=== PATIENT | female | born 1940 | race Caucasian/White ===

== ENCOUNTER 2017-11-21 22:02 | Emergency (ER) | payer OTHER, MEDICARE, BC ==
[~2017-11-21] VITALS: Ht 165.1 cm; Wt 65.8 kg
[~2017-11-21 22:02] MED LIST: ATEN25 PO; ATOR10 PO; Aspir-Low81 MG PO; CALTRATE 600 +1 EACH PO; CHOL10002 PO; Cytomel5 MCG PO; LEVSOD100 PO; MAGOXI400 PO; MULVITMIND PO; OLME5TAB PO; Triamterene W/1 EACH PO
[2017-11-21] MEDS ORDERED: METO50 PO (22:35)
[2018-08-15] MEDS ORDERED: LEVSOD100 PO (21:48)
== END 2017-11-22 01:29 | disposition home or self-care (01) ==
LOC: ER 22:02
DX: S22.22XA Fracture of body of sternum, initial encounter for closed fracture (principal); V89.2XXA Person injured in unspecified motor-vehicle accident, traffic, initial encounter; Z88.8 Allergy status to other drugs, medicaments and biological substances; Z79.899 Other long term (current) drug therapy; Z85.3 Personal history of malignant neoplasm of breast
CPT/HCPCS: 71260; 74177; 99284; Q9967

== ENCOUNTER 2019-05-26 14:32 | Day surgery (SDC) | payer MEDICARE, BC ==
[~2019-05-26] VITALS: Ht 162.6 cm; Wt 61.0 kg
[~2019-05-26 14:32] MED LIST changes: +EUTHYROX88 MCG PO; +METO50 PO; +Super Calcium600 MG PO; +THERA-D2000 UNIT PO
== END 2019-05-26 15:00 | disposition home or self-care (01) ==
LOC: ORSCSDS 14:32
PROVIDERS: Internal Medicine Gastroenterology
PROC: 0DBH8ZX Excision of Cecum, Via Natural or Artificial Opening Endoscopic, Diagnostic (ICD-10-PCS; principal; 2019-05-26 15:45)
PROC: 0DBK8ZX Excision of Ascending Colon, Via Natural or Artificial Opening Endoscopic, Diagnostic (ICD-10-PCS; principal; 2019-05-26 15:45)
DX: Z12.11 Encounter for screening for malignant neoplasm of colon (principal); Z86.010 Personal history of colon polyps; K57.30 Diverticulosis of large intestine without perforation or abscess without bleeding; Z80.0 Family history of malignant neoplasm of digestive organs; D12.0 Benign neoplasm of cecum; D12.2 Benign neoplasm of ascending colon; K63.89 Other specified diseases of intestine; I10 Essential (primary) hypertension; Z79.899 Other long term (current) drug therapy
CPT/HCPCS: 88305; J2704; J7120

== ENCOUNTER 2020-11-17 07:49 | Day surgery (SDC) | payer MEDICARE, BC ==
[~2020-11-17] VITALS: Ht 165.1 cm; Wt 68.5 kg
== END 2020-11-17 09:50 | disposition home or self-care (01) ==
LOC: ORSCSDS 07:49
PROVIDERS: Internal Medicine Gastroenterology
PROC: 0DB58ZX Excision of Esophagus, Via Natural or Artificial Opening Endoscopic, Diagnostic (ICD-10-PCS; 2020-11-17)
PROC: 0D758ZZ Dilation of Esophagus, Via Natural or Artificial Opening Endoscopic (ICD-10-PCS; principal; 2020-11-17 09:00)
DX: R13.10 Dysphagia, unspecified (principal); I10 Essential (primary) hypertension; Z79.899 Other long term (current) drug therapy
CPT/HCPCS: 88305; J0461; J2405; J2704; J7120

== ENCOUNTER 2024-04-23 07:28 | Day surgery (SDC) | payer MEDICARE, BC ==
[~2024-04-23] VITALS: Ht 162.6 cm; Wt 65.3 kg
[~2024-04-23 07:28] MED LIST changes: +ALEN70 PO; +CALCIUM CARBONATE PO; -EUTHYROX88 MCG PO; +FAMO20 PO; +IRBE150; +IRBE150 PO; +LEVSOD112 PO; +TOPROL XL50 MG PO; +TYLENOL PM PO
[2024-04-23] MEDS ORDERED: Lactated Ringer's 1,000 ML IV ONE ×3 (07:42→08:11)
[2024-04-23] MEDS ORDERED: propofoL 50 ML IV ONE (07:42)
[2024-04-23 09:56] VITALS: BP 115/50
== END 2024-04-23 10:03 | disposition home or self-care (01) ==
LOC: ORSCSDS 07:28
DX: Z12.11 Encounter for screening for malignant neoplasm of colon (principal); D12.0 Benign neoplasm of cecum; D12.2 Benign neoplasm of ascending colon; D17.5 Benign lipomatous neoplasm of intra-abdominal organs; Z86.010 Personal history of colon polyps
CPT/HCPCS: 88305; J2704; J7120